=== PATIENT | female | born 1990 | race Hispanic/Latino ===

== ENCOUNTER 2018-09-13 07:44 | Emergency (ER) | payer SELFPAY ==
[2018-09-13] MEDS ORDERED: MORPHINE 2 MG/ML SYR ONE (08:30)
[2018-09-13] MEDS ORDERED: NA CHLORIDE 0.9% 1,000 ML ONE (08:31)
[2018-09-13] MEDS ORDERED: ONDANSETRON 4 MG/2 ML VIAL ONE (08:31)
[2018-09-13 08:32] LABS: Absolute Monocytes 0.1 K/uL (0.1-1.3); Absolute Neutrophil 9.1 K/uL (1.8-8.0); Basophils % 0.1 % (0-1.3); Eosinophils % 0.1 % (0-4.4); Lymphocytes % 9.6 % (15.3-44.8); MPV 8.5 fL (7.6-11.3); Monocytes % 1.3 % (3.3-12.3); RBC Red Blood Cell Count 4.54 M/uL (3.86-4.86)
[2018-09-13 08:45] LABS: ALT/SGPT 20 U/L (12-78); AST/SGOT 16 U/L (15-37); Albumin 4.3 g/dL (3.4-5.0); Alkaline Phosphatase 70 U/L (45-117); BUN Blood Urea Nitrogen 13 mg/dL (7-18); Bicarbonate 26 mmol/L (21-32); Bilirubin Direct 0.2 mg/dL (0-0.2); Bilirubin Total 0.6 mg/dL (0.2-1.0); Glucose Level 120 mg/dL (74-106); Lipase 75 U/L (73-393); Protein, Total 8.1 g/dL (6.4-8.2); Sodium Level 139 mmol/L (136-145)
[2018-09-13 09:12] LABS: Blood Morphology Comment NOT SEEN (NOT SEEN); Platelet Estimate ADEQ
[2018-09-13 09:33] LABS: Urine Blood NEGATIVE (NEG); Urine Glucose NEGATIVE (NEG); Urine Protein TRACE (NEG); Urine pH 8.5 (5.0-7.0)
--- NOTE | 2018-09-13 09:36 | RAD REPORT ---
EXAM DESCRIPTION: CT - Abdomen Pelvis W Contrast - 09/13/2018 8:59 am CLINICAL HISTORY: Abdominal pain with nausea. COMPARISON: none. TECHNIQUE: Computed axial tomography of the abdomen pelvis was obtained. 100 cc Isovue-300 was admin istered intravenously. Oral contrast was not requested which limits evaluation of bowel. All CT scans are performed using dose optimization technique as appropriate and may include automated exposure control or mA/KV adjustment according to patient size. FINDINGS: Periportal hepatic edema is present. This is a nonspecific finding but can be associated w ith inflammation Spleen, pancreas, adrenal and kidneys appear unremarkable. There is no evidence of diverticulitis. Gallbladder is distended. Gallbladder wall may be borderline thickened Minimal amount of free fluid in the pelvis IMPRESSION: Gallbladder distention with borderline gallbladder wall thickening. Ultrasound recommend ed
[2018-09-13] MEDS ORDERED: MORPHINE 4 MG/ML SYR ONE (10:33)
--- NOTE | 2018-09-13 11:07 | RAD REPORT ---
EXAM DESCRIPTION: US - Abdomen Exam Limited - 09/13/2018 10:46 am CLINICAL HISTORY: Abdominal pain COMPARISON: CT study September 02 FINDINGS: There are 3 large gallstones present up to 18 mm in size. A 16 mm stone is fixed at the ne ck of the gallbladder. No measurable quantity of sludge. There is no wall thickening or pericholecyst ic fluid. No common duct stone or biliary tree dilatation identified. IMPRESSION: There are 3 gallstones identified largest measuring 18 mm. A 16 millimeter stone is pres ent fixed at the neck of the gallbladder. No wall thickening or pericholecystic fluid. No biliary tree abnormality.
[2018-09-13] MEDS ORDERED: METRONIDAZOLE 500mg IVPB 500 MG/100 ML BAG IV ONE (11:15)
[2018-09-13] MEDS ORDERED: CIPROFLOXACIN 400mg IV 400 MG/200 ML BAG IV ONE (11:15)
[2018-09-13] MEDS ORDERED: KETOROLAC 30 MG/ML INJ ONE (11:37)
--- NOTE | 2018-09-13 12:57 | EDPHYS ---
Physician Documentation [facility] Name: Kaur Bone Age: 28 yrs Sex: Female : 1990 Arrival Date: 09/13/2018 Time: 07:49 Bed 18 Private MD: ED Physician Enoc Bradshaw HPI: 09/13 08:07 This 28 yrs old Female presents to ER via Ambulatory with complaints of jmm Abdominal Pain, Back Pain, Vomiting. 08:07 The patient presents with abdominal pain in the right upper quadrant, right lower jmm quadrant. Onset: The symptoms/episode began/occurred this morning. The symptoms do not radiate. Associated signs and symptoms: Pertinent positives: vomiting, Pertinent negatives: diarrhea. This is a 28 year old female with no chronic medical conditions that presents to the ED with complaints of abdominal pain and vomiting beginning this morning at approx 1 am. Denies diarrhea. . 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 - Social history:: Smoking status: . - Ebola Screening: : Patient denies travel to an Ebola-affected area in the 21 days before illness onset. ROS: 08:07 Constitutional: Negative for fever, chills, and weight loss, Cardiovascular: Negative jmm for chest pain, palpitations, and edema, Respiratory: Negative for shortness of breath, cough, wheezing, and pleuritic chest pain. 08:07 Back: Negative for injury and pain, MS/Extremity: Negative for injury and deformity, Neuro: Negative for headache, weakness, numbness, tingling, and seizure. 08:07 Abdomen/GI: Positive for abdominal pain, nausea and vomiting, Negative for diarrhea. 08:07 All other systems are negative. Exam: 08:07 Constitutional: This is a well developed, well nourished patient who is awake, alert, jmm and in no acute distress. Head/Face: atraumatic. Eyes: EOMI, no conjunctival erythema appreciated ENT: Moist Mucus Membranes Neck: Trachea midline, Supple Chest/axilla: Normal chest wall appearance and motion. Cardiovascular: Regular rate and rhythm. No edema appreciated Respiratory: Normal respirations, no respiratory distress appreciated 08:07 Abdomen/GI: Inspection: abdomen appears normal, Bowel sounds: active, Palpation: soft, moderate abdominal tenderness, in the right upper quadrant and right lower quadrant. 08:07 Back: CVA tenderness, that is mild, is noted on the right. 08:07 Musculoskeletal/extremity: ROM: intact in all extremities. 08:07 Skin: Appearance: Color: normal in color, pink. 08:07 Neuro: Orientation: is normal, Mentation: is normal, Memory: is normal. 08:07 Psych: Behavior/mood is pleasant, cooperative. Vital Signs: 07:54 BP 124 / 81; Pulse 96; Resp 17; Temp 98.1(TE); Pulse Ox 100% on R/A; Weight 54.43 kg tw2 (R); Height 5 ft. 3 in. (160.02 cm); Pain 8/10; 08:34 BP 112 / 95; Pulse 84; Resp 17; Pulse Ox 100% on R/A; tw2 09:30 BP 128 / 69; Pulse 73; Resp 17; Pulse Ox 99% on R/A; tw2 10:44 BP 129 / 76; Pulse 87; Resp 17; Pulse Ox 99% on R/A; tw2 12:01 BP 117 / 75; Pulse 73; Resp 17; Pulse Ox 100% on R/A; tw2 12:51 BP 110 / 76; Pulse 80; Resp 17; Pulse Ox 100% on R/A; tw2 07:54 Body Mass Index 21.26 (54.43 kg, 160.02 cm) tw2 MDM: 07:51 Patient medically screened. [facility] 12:54 Data reviewed: vital signs, nurses notes. Counseling: I had a detailed discussion with curry the patient and/or guardian regarding: the historical points, exam findings, and any diagnostic results supporting the discharge/admit diagnosis, lab results, radiology results, the need for outpatient follow up, to return to the emergency department if symptoms worsen or persist or if there are any questions or concerns that arise at home. ED course: I discussed the patient with Dr. Lawrence whom will follow up with the patient in clinic tomorrow. Patient was otherwise given strict return precautions along with dietary restrictions. Patient understood and agrees with the plan of care. . 09/13 08:05 Order name: Basic Metabolic Panel [facility] 09/13 08:05 Order name: CBC with Diff [facility] 09/13 08:05 Order name: Creatinine for Radiology; Complete Time: 08:45 [facility] 09/13 08:05 Order name: Hepatic Function; Complete Time: 08:59 [facility] 09/13 08:05 Order name: Lipase; Complete Time: 08:59 [facility] 09/13 08:06 Order name: Basic Metabolic Panel; Complete Time: 08:59 [facility]CO 09/13 08:05 Order name: CT Abd/Pelvis - IV Contrast Only; Complete Time: 09:40 [facility] 09/13 08:06 Order name: CBC with Automated Diff; Complete Time: 09:40 EDMS 09/13 08:52 Order name: Urine Dipstick--Ancillary (enter results); Complete Time: 09:40 09/13 08:52 Order name: Urine --Ancillary (enter results); Complete Time: 09:40 09/13 09:16 Order name: Manual Differential; Complete Time: 09:40 [facility]CO 09/13 09:39 Order name: US Abdomen Limited; Complete Time: 11:10 [facility] 09/13 08:05 Order name: IV Saline Lock; Complete Time: 08:24 [facility] 09/13 08:05 Order name: Labs collected and sent; Complete Time: 08:24 jm Administered Medications: 08:22 Drug: Zofran 4 mg Route: IVP; Site: right antecubital; tw2 10:45 Follow up: Response: No adverse reaction tw2 08:24 Drug: morphine 2 mg Route: IVP; Site: right antecubital; tw2 10:20 Follow up: Response: No adverse reaction; Pain is unchanged, physician notified tw2 08:26 Drug: NS 0.9% 1000 ml Route: IV; Rate: 1 bolus; Site: right antecubital; tw2 09:25 Follow up: Response: No adverse reaction; IV Status: Completed infusion; IV Intake: tw2 1000ml 10:25 Drug: morphine 4 mg Route: IVP; Site: right antecubital; tw2 11:15 Follow up: Response: No adverse reaction; Pain is decreased tw2 11:02 Drug: Flagyl 500 mg Volume: 100 ml; Route: IVPB; Rate: 200 ml/hr; Infused Over: 30 tw2 mins; Site: right antecubital; 11:41 Follow up: Response: No adverse reaction; IV Status: Completed infusion tw2 11:26 Drug: Ketorolac 30 mg Route: IVP; Site: right antecubital; tw2 12:00 Follow up: Response: No adverse reaction; Pain is decreased tw2 11:41 Drug: Cipro 400 mg Volume: 200 ml; Route: IVPB; Infused Over: 60 mins; Site: right tw2 antecubital; 12:41 Follow up: Response: No adverse reaction; IV Status: Completed infusion tw2 Disposition: 18:55 Co-signature as Attending Physician, Enoc Bradshaw MD Available for consultation at ps1 all times. . Disposition: 09/13/18 12:56 Discharged to Home. Impression: Cholelithiasis. - Condition is Stable. - Discharge Instructions: Cholelithiasis. - Prescriptions for Zofran ODT 4 mg Oral tablet,disintegrating - place 1 tablet by TRANSLINGUAL route every 4-6 hours; 20 tablet. Flagyl 500 mg Oral Tablet - take 1 tablet by ORAL route every 8 hours for 10 days; 30 tablet. Tylenol- Codeine #3 300-30 mg Oral Tablet - take 1 tablet by ORAL route every 6 hours As needed; 12 tablet. Cipro 500 mg Oral Tablet - take 1 tablet by ORAL route every 12 hours for 10 days; 20 tablet. - Medication Reconciliation Form, Thank You Letter, Antibiotic Education, Prescription Opioid Use form. - Follow up: Roney Lawrence MD; When: Tomorrow; Reason: Recheck today's complaints, Continuance of care, Re-evaluation by your physician, Please follow up tomorrow morning.. Signatures: Dispatcher [employer] EDMS Ascencion Hernandes PA PA jmm Wise, Tara, RN RN tw2 Enoc Bradshaw MD MD ps1 Corrections: (The following items were deleted from the chart) 13:03 12:56 09/13/2018 12:56 Discharged to Home. Impression: Cholelithiasis. Condition is tw2 Stable. Forms are Medication Reconciliation Form, Thank You Letter, Antibiotic Education, Prescription Opioid Use. Follow up: Roney Lawrence; When: Tomorrow; Reason: Recheck today's complaints, Continuance of care, Re-evaluation by your physician, Please follow up tomorrow morning.. curry
--- NOTE | 2018-09-13 12:57 | ER ---
Nurse's Notes [facility] Name: Kaur Bone Age: 28 yrs Sex: Female : 1990 Arrival Date: 09/13/2018 Time: 07:49 Bed 18 Private MD: Diagnosis: Cholelithiasis Presentation: 09/13 07:52 Presenting complaint: Patient states: i woke up with stomach cramps around 1 am, but tw2 the cramps wont go away and i vomited like 6 times, it mckeon when i pee, and it hurts like in the middle of my back. Transition of care: patient was not received from another setting of care. Onset of symptoms was September 13, 2018. Risk Assessment: Do you want to hurt yourself or someone else? Patient reports no desire to harm self or others. Initial Sepsis Screen: Does the patient meet any 2 criteria? No. Patient's initial sepsis screen is negative. Does the patient have a suspected source of infection? No. Patient's initial sepsis screen is negative. Care prior to arrival: None. 07:52 Method Of Arrival: Ambulatory tw2 07:52 Acuity: JONAH 3 tw2 Triage Assessment: 07:54 General: Appears in no apparent distress. uncomfortable, slender, Behavior is calm, tw2 cooperative, appropriate for age. Pain: Complains of pain in abdomen. GI: Reports cramping, nausea, vomiting. 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 - Social history:: Smoking status: . - Ebola Screening: : Patient denies travel to an Ebola-affected area in the 21 days before illness onset. Screenin:56 Abuse screen: Denies threats or abuse. Nutritional screening: No deficits noted. tw2 Tuberculosis screening: No symptoms or risk factors identified. Fall Risk None identified. Assessment: 07:56 General: Appears uncomfortable, slender, Behavior is calm, cooperative, appropriate for tw2 age. Pain: Complains of pain in abdomen. Neuro: Level of Consciousness is awake, alert, obeys commands, Oriented to person, place, time, situation. Cardiovascular: Heart tones S1 S2 Patient's skin is warm and dry. Respiratory: Airway is patent Respiratory effort is even, unlabored, Respiratory pattern is regular, symmetrical, Breath sounds are clear bilaterally. GI: Bowel sounds present X 4 quads. Abd is soft X 4 quads Reports cramping, nausea. : Reports burning with urination. EENT: No signs and/or symptoms were reported regarding the EENT system. Derm: No signs and/or symptoms reported regarding the dermatologic system. Musculoskeletal: Range of motion: intact in all extremities, Reports pain in left mid back and right mid back. 08:34 Reassessment: Patient appears in no apparent distress at this time. No changes from tw2 previously documented assessment. Patient and/or family updated on plan of care and expected duration. Pain level reassessed. Patient is alert, oriented x 3, equal unlabored respirations, skin warm/dry/pink. 09:44 Reassessment: Patient appears in no apparent distress at this time. Patient and/or tw2 family updated on plan of care and expected duration. Pain level reassessed. Patient is alert, oriented x 3, equal unlabored respirations, skin warm/dry/pink. provider notified. "it still feels the same" Patient states symptoms have not improved. 10:44 Reassessment: Patient appears in no apparent distress at this time. No changes from tw2 previously documented assessment. Patient and/or family updated on plan of care and expected duration. Pain level reassessed. Patient is alert, oriented x 3, equal unlabored respirations, skin warm/dry/pink. 12:01 Reassessment: Patient appears in no apparent distress at this time. No changes from tw2 previously documented assessment. Patient and/or family updated on plan of care and expected duration. Pain level reassessed. Patient states feeling better. 12:51 Reassessment: Patient appears in no apparent distress at this time. No changes from tw2 previously documented assessment. Patient and/or family updated on plan of care and expected duration. Pain level reassessed. Patient is alert, oriented x 3, equal unlabored respirations, skin warm/dry/pink. pts family has chickfil a in room. 13:00 Reassessment: pt discontinued her own IV at this time, "i thought you said i could take tw2 it off", bleeding controlled with gauze and pressure dressing at this time. Vital Signs: 07:54 BP 124 / 81; Pulse 96; Resp 17; Temp 98.1(TE); Pulse Ox 100% on R/A; Weight 54.43 kg tw2 (R); Height 5 ft. 3 in. (160.02 cm); Pain 8/10; 08:34 BP 112 / 95; Pulse 84; Resp 17; Pulse Ox 100% on R/A; tw2 09:30 BP 128 / 69; Pulse 73; Resp 17; Pulse Ox 99% on R/A; tw2 10:44 BP 129 / 76; Pulse 87; Resp 17; Pulse Ox 99% on R/A; tw2 12:01 BP 117 / 75; Pulse 73; Resp 17; Pulse Ox 100% on R/A; tw2 12:51 BP 110 / 76; Pulse 80; Resp 17; Pulse Ox 100% on R/A; tw2 07:54 Body Mass Index 21.26 (54.43 kg, 160.02 cm) tw2 ED Course: 07:49 Patient arrived in ED. mr 07:49 Ascencion Hernandes PA is PHCP. jmm 07:49 Enoc Bradshaw MD is Attending Physician. jmm 07:52 Bed in low position. Call light in reach. tw2 07:53 Bing Flannery, RN is Primary Nurse. tw2 07:54 Triage completed. tw2 07:54 Arm band placed on. tw2 07:55 Urine collected: clean catch specimen, clear. dh3 08:22 Inserted saline lock: 20 gauge in right antecubital area, using aseptic technique. tw2 Blood collected. 08:59 CT Abd/Pelvis - IV Contrast Only In Process Unspecified. EDMS 10:47 US Abdomen Limited In Process Unspecified. EDMS 12:56 Roney Lawrence MD is Referral Physician. jmm 13:01 IV discontinued, intact, bleeding controlled, No redness/swelling at site. Pressure tw2 dressing applied. 13:01 No provider procedures requiring assistance completed. tw2 Administered Medications: 08:22 Drug: Zofran 4 mg Route: IVP; Site: right antecubital; tw2 10:45 Follow up: Response: No adverse reaction tw2 08:24 Drug: morphine 2 mg Route: IVP; Site: right antecubital; tw2 10:20 Follow up: Response: No adverse reaction; Pain is unchanged, physician notified tw2 08:26 Drug: NS 0.9% 1000 ml Route: IV; Rate: 1 bolus; Site: right antecubital; tw2 09:25 Follow up: Response: No adverse reaction; IV Status: Completed infusion; IV Intake: tw2 1000ml 10:25 Drug: morphine 4 mg Route: IVP; Site: right antecubital; tw2 11:15 Follow up: Response: No adverse reaction; Pain is decreased tw2 11:02 Drug: Flagyl 500 mg Volume: 100 ml; Route: IVPB; Rate: 200 ml/hr; Infused Over: 30 tw2 mins; Site: right antecubital; 11:41 Follow up: Response: No adverse reaction; IV Status: Completed infusion tw2 11:26 Drug: Ketorolac 30 mg Route: IVP; Site: right antecubital; tw2 12:00 Follow up: Response: No adverse reaction; Pain is decreased tw2 11:41 Drug: Cipro 400 mg Volume: 200 ml; Route: IVPB; Infused Over: 60 mins; Site: right tw2 antecubital; 12:41 Follow up: Response: No adverse reaction; IV Status: Completed infusion tw2 Intake: 09:25 IV: 1000ml; Total: 1000ml. tw2 Outcome: 12:56 Discharge ordered by . curry 13:01 Discharged to home ambulatory, with family, with significant other. tw2 13:01 Condition: stable 13:01 Discharge instructions given to patient, family, significant other, Instructed on discharge instructions, follow up and referral plans. no drinking with medication, no driving heavy equipment, medication usage, Demonstrated understanding of instructions, follow-up care, medications, Prescriptions given X 4. 13:03 Patient left the ED. tw2 Signatures: Dispatcher [employer] EDMS Ascencion Hernandes PA PA jmm Rivera, Mary mr Wise, Tara, RN RN tw2 Calista Rm 3
== END 2018-09-13 13:03 | disposition home or self-care (01) ==
LOC: ER 07:44
DX: K80.20 Calculus of gallbladder without cholecystitis without obstruction (principal)
CPT/HCPCS: 36415; 74177; 76705; 80048; 80076; 81003; 81025; 83690; 85025; 96361; 96365; 96367; 96375; 99284; J0744; J2270; J2405; J7030; Q9967

== ENCOUNTER 2020-02-01 22:44 | Emergency (ER) | payer OTHER, SELFPAY ==
[2020-02-01 23:26] LABS: Urine Blood NEGATIVE (NEG); Urine Glucose NEGATIVE (NEG); Urine Protein NEGATIVE (NEG); Urine Specific Gravity >1.030 (1.005-1.030); Urine pH 6.5 (5.0-7.0)
[2020-02-02 00:17] LABS: Absolute Lymphocytes (CBC) 1.1 K/uL (0.7-4.9); Basophils % 0.3 % (0-1.3); Hematocrit 38.7 % (36.0-45.0); Lymphocytes % 9.7 % (15.3-44.8); MPV 8.7 fL (7.6-11.3); RBC Red Blood Cell Count 4.44 M/uL (3.86-4.86)
[2020-02-02] MEDS ORDERED: DICYCLOMINE HCL 10 MG CAP ONE (00:23)
[2020-02-02 00:28] LABS: ALT/SGPT 26 U/L (12-78); AST/SGOT 19 U/L (15-37); Albumin 4.1 g/dL (3.4-5.0); Alkaline Phosphatase 89 U/L (45-117); BUN Blood Urea Nitrogen 17 mg/dL (7-18); Bicarbonate 24 mmol/L (21-32); Bilirubin Direct < 0.1 mg/dL (0-0.2); Bilirubin Total 0.4 mg/dL (0.2-1.0); Glucose Level 114 mg/dL (74-106); Lipase 83 U/L (73-393); Potassium 3.8 mmol/L (3.5-5.1); Protein, Total 8.1 g/dL (6.4-8.2); Sodium Level 137 mmol/L (136-145)
--- NOTE | 2020-02-02 00:35 | ER ---
Nurse's Notes [facility] Name: Kaur Bone Age: 29 yrs Sex: Female : 1990 Arrival Date: 02/01/2020 Time: 22:47 Bed 17 Private MD: Diagnosis: Cholelithiasis Presentation: 01/31 22:49 Chief complaint: Patient states: "about a year ago I was told I was having gal bladder jd3 problems and was told I need it out, but I didn't do it due to not having insurance. now it is hurting regardless of medications I take.". Coronavirus screen: At this time, the client does not indicate any symptoms associated with coronavirus-19. Ebola Screen: Patient negative for fever greater than or equal to 101.5 degrees Fahrenheit, and additional compatible Ebola Virus Disease symptoms. Initial Sepsis Screen: Does the patient meet any 2 criteria? No. Patient's initial sepsis screen is negative. Does the patient have a suspected source of infection? No. Patient's initial sepsis screen is negative. Risk Assessment: Do you want to hurt yourself or someone else? Patient reports no desire to harm self or others. Note Advil 2130. 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 - Social history:: Smoking status: Patient denies any tobacco usage or history of. Screenin:30 Abuse screen: Denies threats or abuse. Denies injuries from another. Nutritional lp1 screening: No deficits noted. Tuberculosis screening: No symptoms or risk factors identified. Fall Risk None identified. Assessment: 23:25 General: Appears in no apparent distress. Behavior is appropriate for age. Pain: lp1 Complains of pain in epigastric area, right upper quadrant and right lower quadrant Pain currently is 3 out of 10 on a pain scale. Neuro: Level of Consciousness is awake, alert, obeys commands, Oriented to person, place, time, situation. Cardiovascular: Patient's skin is warm and dry. Respiratory: Respiratory effort is even, unlabored. GI: Abdomen is non-distended, Bowel sounds present X 4 quads. Abdomen is tender to palpation in right upper quadrant. : No signs and/or symptoms were reported regarding the genitourinary system. EENT: No signs and/or symptoms were reported regarding the EENT system. Derm: Skin is pink, warm \\T\\ dry. Musculoskeletal: No deficits noted. 23:30 Reassessment: Ultrasound at bedside. lp1 23:55 Reassessment: Patient refusing IV at this time; agreed to lab draw. lp1 02/01 00:30 Reassessment: Provider at bedside to discuss results with patient and mother. lp1 00:45 Reassessment: Patient is alert, oriented x 3, equal unlabored respirations, skin lp1 warm/dry/pink. Patient request for pain medication prior to discharge for comfort tonight; Provider verbal order for Morphine 4mg IM now, Zofran 4mg ODT PO. Vital Signs: 01/31 22:51 BP 160 / 86; Pulse 95; Resp 17 S; Temp 98.7(O); Pulse Ox 98% on R/A; Weight 58.06 kg jd3 (R); Height 5 ft. 3 in. (160.02 cm) (R); Pain 8/10; 02/01 00:45 BP 149 / 91; Pulse 88; Resp 16; Pulse Ox 100% ; lp1 01/31 22:51 Body Mass Index 22.67 (58.06 kg, 160.02 cm) jd3 ED Course: 01/31 22:47 Patient arrived in ED. ds1 22:50 Triage completed. jd3 22:53 Arm band placed on. jd3 22:57 Ascencion Hernandes PA is PHCP. jmm 22:57 Claudio Corona MD is Attending Physician. jmm 23:09 Trena Dorantes, RN is Primary Nurse. lp1 23:55 Patient has correct armband on for positive identification. lp1 23:55 Initial lab(s) drawn, by me, sent to lab. lp1 23:57 US Abdomen Limited In Process Unspecified. EDMS 02/01 00:34 Roney Lawrence MD is Referral Physician. jmm 00:57 No provider procedures requiring assistance completed. Patient did not have IV access lp1 during this emergency room visit. 00:58 Primary Nurse role handed off by Trena Dorantes RN lp1 00:58 PHCP role handed off by Ascencion Hernandes PA lp1 Administered Medications: 00:12 Drug: Bentyl 20 mg Route: PO; lp1 00:44 Follow up: Response: No adverse reaction lp1 00:44 Not Given (No IV): morphine 4 mg IVP once; RASS on ADMIN: Combtv4, Very Agttd3, Agttd2, lp1 Rstlss1, AlertClm0, Drwsy-1, Lt Sdtn-2, Mod Sdtn-3, Dp Sdtn-4, UnArsble-5 00:44 Not Given (No IV): Zofran (Ondansetron) 4 mg IVP once; over 2 minutes lp1 00:55 Drug: morphine 4 mg Route: IM; Site: right gluteus; lp1 00:59 Follow up: Response: Medication administered at discharge. lp1 00:55 Drug: Ondansetron (Zofran) 4 mg Route: PO; lp1 00:59 Follow up: Response: Medication administered at discharge. lp1 Outcome: 00:35 Discharge ordered by . [facility] 00:57 Discharged to home ambulatory, with family. lp1 00:57 Condition: good 00:57 Discharge instructions given to patient, family, Instructed on discharge instructions, follow up and referral plans. medication usage, Demonstrated understanding of instructions, follow-up care, medications, Prescriptions given X 4. 00:58 Patient left the ED. lp1 00:59 Patient left the ED. lp1 Signatures: Dispatcher [employer] EDMS Ascencion Hernandes PA PA jmm Sanford, Demi ds1 rTena Dorantes, RN RN lp1 Carlos Mcneal RN RN jd3
--- NOTE | 2020-02-02 00:35 | EDPHYS ---
Physician Documentation [facility] Name: Kaur Bone Age: 29 yrs Sex: Female : 1990 Arrival Date: 02/01/2020 Time: 22:47 Bed 17 Private MD: ED Physician Claudio Corona HPI: 02/01 00:13 This 29 yrs old Female presents to ER via Ambulatory with complaints of m Abdominal Pain. 00:13 The patient presents with abdominal pain. Onset: The symptoms/episode began/occurred jmm gradually, today. The symptoms radiate to The symptoms are described as achy, sharp. Modifying factors: The symptoms are alleviated by NSAIDs. This is a 29 year old female with no chronic medical conditions that presents to the ED with complaints of epigastric abdominal pain beginning earler this evening. Patient states taking 600 mg of advil prior to arrival. Pain has decreased. Patient states she was diagnosed with cholelithiasis approx 1 year ago and follow up with Dr. Lawrence. Denies vomiting, diarrhea or fever. . 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 - Social history:: Smoking status: Patient denies any tobacco usage or history of. ROS: 02/01 00:13 Constitutional: Negative for fever, chills, and weight loss, Cardiovascular: Negative jmm for chest pain, palpitations, and edema, Respiratory: Negative for shortness of breath, cough, wheezing, and pleuritic chest pain. Abdomen/GI: Positive for abdominal pain. All other systems are negative. Exam: 00:13 Constitutional: This is a well developed, well nourished patient who is awake, alert, jmm and in no acute distress. Head/Face: atraumatic. Eyes: EOMI, no conjunctival erythema appreciated ENT: Moist Mucus Membranes Neck: Trachea midline, Supple Chest/axilla: Normal chest wall appearance and motion. Cardiovascular: Regular rate and rhythm. No edema appreciated Respiratory: Normal respirations, no respiratory distress appreciated 00:13 Back: Normal ROM Skin: General appearance color normal MS/ Extremity: Moves all extremities, no obvious deformities appreciated, no edema noted to the lower extremities Neuro: Awake and alert, normal gait 00:13 Abdomen/GI: Inspection: abdomen appears normal, Bowel sounds: normal, Palpation: soft, moderate abdominal tenderness, in the right upper quadrant. Vital Signs: 01/31 22:51 BP 160 / 86; Pulse 95; Resp 17 S; Temp 98.7(O); Pulse Ox 98% on R/A; Weight 58.06 kg jd3 (R); Height 5 ft. 3 in. (160.02 cm) (R); Pain 11/11; 02/01 00:45 BP 149 / 91; Pulse 88; Resp 16; Pulse Ox 100% ; lp1 01/31 22:51 Body Mass Index 22.67 (58.06 kg, 160.02 cm) jd3 MDM: 01/31 22:58 Patient medically screened. [facility] 02/01 00:33 Data reviewed: vital signs, nurses notes. Counseling: I had a detailed discussion with [facility] the patient and/or guardian regarding: the historical points, exam findings, and any diagnostic results supporting the discharge/admit diagnosis, lab results, radiology results, the need for outpatient follow up, to return to the emergency department if symptoms worsen or persist or if there are any questions or concerns that arise at home. ED course: US negative for cholecystitis. Labs unremarkable. I discussed options with the patient. Will follow up with Dr. Lawrence outpatient. Patient is otherwise given strict return precautions. Patient understood and agree with the plan of care. . 01/31 22:58 Order name: Basic Metabolic Panel; Complete Time: 00:29 [facility] 01/31 22:58 Order name: CBC with Diff; Complete Time: 00:37 [facility] 01/31 22:58 Order name: Hepatic Function; Complete Time: 00:29 [facility] 01/31 22:58 Order name: Lipase; Complete Time: 00:29 [facility] 01/31 23:09 Order name: Urine --Ancillary (enter results); Complete Time: 23:32 tt3 01/31 23:09 Order name: Urine Dipstick--Ancillary (enter results); Complete Time: 23:32 tt3 01/31 22:58 Order name: US Abdomen Limited [facility] 02/01 00:19 Order name: Manual Differential; Complete Time: 00:37 [facility] 01/31 22:58 Order name: Labs collected and sent; Complete Time: 23:57 [facility] 01/31 22:58 Order name: Urine Dipstick-Ancillary (obtain specimen); Complete Time: 23:31 [facility] 01/31 22:58 Order name: Urine Test (obtain specimen); Complete Time: 23:31 [facility] Administered Medications: 00:12 Drug: Bentyl 20 mg Route: PO; lp1 00:44 Follow up: Response: No adverse reaction lp1 00:44 Not Given (No IV): morphine 4 mg IVP once; RASS on ADMIN: Combtv4, Very Agttd3, Agttd2, lp1 Rstlss1, AlertClm0, Drwsy-1, Lt Sdtn-2, Mod Sdtn-3, Dp Sdtn-4, UnArsble-5 00:44 Not Given (No IV): Zofran (Ondansetron) 4 mg IVP once; over 2 minutes lp1 00:55 Drug: morphine 4 mg Route: IM; Site: right gluteus; lp1 00:59 Follow up: Response: Medication administered at discharge. lp1 00:55 Drug: Ondansetron (Zofran) 4 mg Route: PO; lp1 00:59 Follow up: Response: Medication administered at discharge. lp1 Disposition: 01:12 Co-signature as Attending Physician, Claudio Corona MD. rn Disposition: 02/02/20 00:35 Discharged to Home. Impression: Cholelithiasis. - Condition is Stable. - Discharge Instructions: Clear Liquid Diet, Adult, Cholelithiasis. - Prescriptions for Flagyl 500 mg Oral Tablet - take 1 tablet by ORAL route every 8 hours for 10 days; 30 tablet. Cipro 500 mg Oral Tablet - take 1 tablet by ORAL route every 12 hours for 7 days; 14 tablet. Bentyl 20 mg Oral Tablet - take 1 tablet by ORAL route every 6 hours As needed; 20 tablet. Ultracet 37.5- 325 mg Oral Tablet - take 1 tablet by ORAL route every 6 hours - for up to 5 days; do not exceed 8 tablets per day.; 20 tablet. - Medication Reconciliation Form, Thank You Letter, Antibiotic Education, Prescription Opioid Use form. - Follow up: Roney Lawrence MD; When: 2 - 3 days; Reason: Recheck today's complaints, Continuance of care, Re-evaluation by your physician. Signatures: Dispatcher [employer] EDMS Ascencion Hernandes PA PA [facility] Claudio Corona MD MD rn Pena, Laura RN RN lp1 Carlos Mcneal RN RN jd3 Corrections: (The following items were deleted from the chart) 00:45 10 22:58 IV Saline [place]. [place] [id number] 02/01 00:58 00:35 02/02/2020 00:35 Discharged to Home. Impression: Cholelithiasis. Condition is lp1 Stable. Forms are Medication Reconciliation Form, Thank You Letter, Antibiotic Education, Prescription Opioid Use. Follow up: Roney Lawrence; When: 2 - 3 days; Reason: Recheck today's complaints, Continuance of care, Re-evaluation by your physician. [facility] 00:59 00:58 02/02/2020 00:35 Discharged to Home. Impression: Cholelithiasis. Condition is lp1 Stable. Discharge Instructions: Cholelithiasis, Clear Liquid Diet, Adult. Prescriptions for Flagyl 500 mg Oral Tablet - take 1 tablet by ORAL route every 8 hours for 10 days; 30 tablet, Cipro 500 mg Oral Tablet - take 1 tablet by ORAL route every 12 hours for 7 days; 14 tablet, Bentyl 20 mg Oral Tablet - take 1 tablet by ORAL route every 6 hours As needed; 20 tablet, Ultracet 37.5-325 mg Oral Tablet - take 1 tablet by ORAL route every 6 hours - for up to 5 days; do not exceed 8 tablets per day.; 20 tablet. and Forms are Medication Reconciliation Form, Thank You Letter, Antibiotic Education, Prescription Opioid Use. Follow up: Roney Lawrence; When: 2 - 3 days; Reason: Recheck today's complaints, Continuance of care, Re-evaluation by your physician. lp1
[2020-02-02 00:36] LABS: Blood Morphology Comment NOT SEEN (NOT SEEN); Platelet Estimate ADEQ
[2020-02-02] MEDS ORDERED: MORPHINE 4 MG/ML SYR ONE (01:05)
[2020-02-02] MEDS ORDERED: ONDANSETRON 4 MG (ODT) TAB ONE (01:05)
[2020-02-02 02:35] VITALS: TEMP 98.7
[2020-02-02 02:36] VITALS: BP 149/91; O2SAT 100
--- NOTE | 2020-02-02 11:12 | RAD REPORT ---
EXAM DESCRIPTION: US - Abdomen Exam Limited - 02/01/2020 11:57 pm CLINICAL HISTORY: Abdominal pain. COMPARISON: 2019 FINDINGS: Several gallstones. One is present within the gallbladder neck. The gallbladder wall is no t thickened The biliary tree is normal caliber. IMPRESSION: Cholelithiasis without evidence of cholecystitis
== END 2020-02-02 00:59 | disposition home or self-care (01) ==
LOC: ER 22:44
DX: K80.20 Calculus of gallbladder without cholecystitis without obstruction (principal)
CPT/HCPCS: 36415; 76705; 80048; 80076; 81003; 81025; 83690; 85025; 96372; 99284